=== PATIENT | female | born 1945 | race Caucasian/White ===

== ENCOUNTER 2016-10-17 10:10 | Emergency (ER) | payer MEDICARE ==
[2016-10-17 10:17] VITALS: TEMP 98.5; BMI 24.5
--- NOTE | 2016-10-17 10:19 | PDOC ---
History of Present Illness <Santo Hernandez - Last Filed: 10/17/16 12:55> - General History Source: Patient Exam Limitations: No Limitations - History of Present Illness Initial Comments: 10/17/16 11:48 The patient is a 71 year old female, with a significant past medical history of kidney infection, who presents to the emergency department with left mid back pain for the past 5 days. She reports that she has had a persistent cough since 09/11/16 that is productive of a white phlegm. She notes that recently she has been having fevers of as high as 100.0. She states that she saw her PMD this past week for her flu like symptoms and was prescribed Azithromycin. She states that her pain is intermittent in nature, ranging from mild to moderate, without radiation or modifying factors. The patient denies chest pain, shortness of breath, headache and dizziness. Denies nausea, vomit, diarrhea and constipation. Denies dysuria, frequency, urgency and hematuria. Allergies: None Past surgical history: None reported Social history: No alcohol, tobacco or drug use reported PMD - Dr. Win Vásquez <Blas Rojo - Last Filed: 10/17/16 13:07> - General Chief Complaint: Pain, Acute Stated Complaint: KIDNEY PAIN Time Seen by Provider: 10/17/16 10:19 Past History - Past Medical History Kidney Stones: (kidney infection) - Psycho/Social/Smoking Cessation Hx Suicidal Ideation: No Smoking History: Never smoked Have you smoked in the past 12 months: No Information on smoking cessation initiated: No Hx Alcohol Use: No Drug/Substance Use Hx: No Substance Use Type: None <Santo Hernandez - Last Filed: 10/17/16 12:55> <Blas Rojo - Last Filed: 10/17/16 13:07> - Past Medical History Allergies/Adverse Reactions: Allergies Allergy/AdvReac Type Severity Reaction Status Date / Time No Known Drug Allergies Allergy Verified 10/17/16 10:17 Home Medications: Ambulatory Orders Azithromycin [Zithromax -] 250 mg PO DAILY 10/17/16 Bisacodyl [Correctol] 5 mg PO DAILY PRN 10/17/16 Famotidine [Pepcid -] 40 mg PO DAILY 10/17/16 Review of Systems - Review of Systems Able to Perform ROS?: Yes Comments:: 10/17/16 11:48 CONSTITUTIONAL: +Fever. No chills, no fatigue EYES: No visual changes ENT: No ear pain, no sore throat CARDIOVASCULAR: No chest pain, no palpitations RESPIRATORY: +Cough. No SOB GI: No abdominal pain, no nausea, no vomiting, no constipation, no diarrhea GENITOURINARY: No dysuria, no frequency, no hematuria MUSKULOSKELETAL: +Left mid back pain. No joint pain, no myalgias SKIN: No rash NEURO: No headache <Blas Rojo - Last Filed: 10/17/16 13:07> *Physical Exam - Vital Signs Last Vital Signs Temp Pulse Resp BP Pulse Ox 98.5 F 90 18 112/50 96 10/17/16 10:16 10/17/16 10:16 10/17/16 10:16 10/17/16 10:16 10/17/16 10:16 <Santo Hernandez - Last Filed: 10/17/16 12:55> - Vital Signs Last Vital Signs Temp Pulse Resp BP Pulse Ox 98.5 F 90 18 112/50 96 10/17/16 10:16 10/17/16 10:16 10/17/16 10:16 10/17/16 10:16 10/17/16 10:16 - Physical Exam Comments: 10/17/16 11:48 CONSTITUTIONAL: Well-appearing; well-nourished; in no apparent distress HEAD: Normocephalic; atraumatic EYES: PERRL; EOM intact ENMT: External appears normal; normal oropharynx NECK: Supple; non-tender; no cervical lymphadenopathy CARD: Normal S1, S2; no murmurs, rubs, or gallops RESP: Normal chest excursion with respiration; breath sounds clear and equal bilaterally; no wheezes, rhonchi, or rales ABD: Soft, non-distended; non-tender; no palpable organomegaly, no palpable hernias MUSCULOSKELETAL: +Reproducible left infrascapular tenderness to palpation. EXT: Normal ROM in all four extremities; non-tender to palpation; distal pulses intact SKIN: Warm, dry, no rash NEURO: No focal neurological deficiencies. <Blas Rojo - Last Filed: 10/17/16 13:07> ED Treatment Course - ADDITIONAL ORDERS Additional order review: Laboratory Results 10/17/16 11:03 Urine Color Yellow Urine Appearance Clear Urine pH 5.0 Ur Specific [place] 1.014 Urine Protein Negative Urine Glucose (UA) Negative Urine Ketones Negative Urine Blood 1+ H Urine Nitrite Negative Urine Bilirubin Negative Urine Urobilinogen Negative Ur Leukocyte Esterase Negative Urine RBC 1 Urine WBC 1 Urine Mucus Rare - RADIOLOGY Radiograph Interpretation: 10/17/16 13:06 Chest X-Ray Reviewed by: Dr. Sanjay Islas Impression: No acute pathology. No significant chance since 01/13/2016 <Blas Rojo - Last Filed: 10/17/16 13:07> Medical Decision Making - Medical Decision Making 10/17/16 13:00 Patient is a well-appearing 8-year-old female who presents with atraumatic left infrascapular pain and mild productive cough for the past several days. Patient' s currently on Zithromax prescribed by the PMD. In the ER, patient is afebrile, nontoxic appearing, ambulates without difficulty. Physical exam reveals reproducible left intrascapular musculoskeletal tenderness to palpation. Chest x -ray reveals no evidence of infiltrate or effusion. I do not suspect ACS or PE at this time. Will discharge with NSAIDs with PMD follow-up as needed. <Santo Hernandez - Last Filed: 10/17/16 12:55> *DC/Admit/Observation/Transfer - Attestations Physician Attestion: 10/17/16 12:59 The documentation was prepared by the scribe under my direct supervision. I have reviewed the documentation which correctly represents the findings, medical decision-making and critical action taken by me. <Santo Hernandez - Last Filed: 10/17/16 12:55> - Attestations Scribe Attestion: 10/17/16 11:48 Documentation prepared by Blas Rojo, acting as medical instructor for Santo Hernandez MD. <Blas Rojo - Last Filed: 10/17/16 13:07> Diagnosis at time of Disposition: Upper back pain on left side - Discharge Dispostion Disposition: HOME Condition at time of disposition: Stable - Referrals Referrals: Win Vásquez MD [Staff Physician] - - Patient Instructions Printed Discharge Instructions: DI for Thoracic Back Pain Print Language: ANDORRAN
[2016-10-17 11:20] LABS: URINE APPEARANCE CLEAR; URINE BILIRUBIN NEGATIVE (NEGATIVE); URINE COLOR YELLOW; URINE GLUCOSE (UA) NEGATIVE (NEGATIVE); URINE KETONE NEGATIVE (NEGATIVE); URINE LEUK ESTERASE NEGATIVE (NEGATIVE); URINE NITRITE NEGATIVE (NEGATIVE); URINE PROTEIN NEGATIVE (NEGATIVE); URINE UROBILINOGEN NEGATIVE E.U./dl (0.2-1.0)
[2016-10-17 11:22] LABS: URINE BLOOD 1+ (NEGATIVE)
[2016-10-17 11:24] LABS: URINE MUCUS RARE; URINE RBC 1 /hpf (0-3); URINE WBC 1 /hpf (3-5)
[2016-10-17] MEDS ORDERED: IBUPROFEN 400 MG TABLET (FP) PO ONE ×2 (11:46→12:02)
[2016-10-17 13:21] VITALS: BP 116/66; PULSE 87
== END 2016-10-17 13:20 | disposition home or self-care (01) ==
LOC: JER 10:10
DX: M54.6 Pain in thoracic spine (principal)
CPT/HCPCS: 71020-TC; 81003; 81015; 87086; 99284-25

== ENCOUNTER 2022-11-06 05:57 | Day surgery (SDC) | payer MEDICARE ==
[2022-11-06 06:43] VITALS: BMI 23.0
[2022-11-06] MEDS ORDERED: BUPIVACAINE HCL/PF 0.5% (5 MG/ML) 30 ML VIAL IJ ONE (07:02)
[2022-11-06] MEDS ORDERED: DEXAMETHASONE SOD PHOSPHATE/PF 10 MG/ML SDV ONE (07:02)
[2022-11-06] MEDS ORDERED: MIDAZOLAM HCL 2 MG/2 ML SINGLE DOSE VIAL ONE ×2 (07:06→08:14)
[2022-11-06] MEDS ORDERED: BUPIVACAINE HCL/EPINEPHRINE/PF 30 ML VIAL IJ ONE (07:34)
[2022-11-06] MEDS ORDERED: PROPOFOL 40 ML ONE (07:35)
[2022-11-06] MEDS ORDERED: oxyCODONE HCL 5 MG TABLET PO PRN (09:53)
[2022-11-06] MEDS ORDERED: ONDANSETRON 4 MG/2 ML VIAL IVPUSH PRN (09:53)
[2022-11-06] MEDS ORDERED: KETOROLAC TROMETHAMINE 15 MG/ML VIAL IVPUSH ONE (09:54)
[2022-11-06] MEDS ORDERED: ACETAMINOPHEN 1000 MG/100 ML BAG IVPB ONE (09:54)
[2022-11-06] MEDS ORDERED: ONDANSETRON 4 MG/2 ML VIAL ONE ×2 (10:02→10:51)
[2022-11-06] MEDS ORDERED: KETOROLAC TROMETHAMINE 30 MG/1 ML VIAL ONE (10:02)
[2022-11-06] MEDS ORDERED: FENTANYL CITRATE/PF 50 MCG/ML VIAL ONE (10:02)
[2022-11-06] MEDS ORDERED: ACETAMINOPHEN INJECTION 100 ML IVPB ONE (10:03)
[2022-11-06] MEDS ORDERED: ceFAZolin SODIUM 1 GM VIAL ONE (10:51)
[2022-11-06] MEDS ORDERED: oxyCODONE HCL 5 MG TABLET ONE (10:57)
[2022-11-06 11:21] VITALS: RESP 19
[2022-11-06 11:59] VITALS: BP 125/60; PULSE 62; TEMP 97.7
== END 2022-11-06 11:59 | disposition home or self-care (01) ==
LOC: FASU 05:57
PROVIDERS: ATTEND Orthopaedic Surgery
PROC: 0LS30ZZ Reposition Right Upper Arm Tendon, Open Approach (ICD-10-PCS; 2022-11-06)
PROC: 0RNJ4ZZ Release Right Shoulder Joint, Percutaneous Endoscopic Approach (ICD-10-PCS; principal; 2022-11-06 08:30)
PROC: 0PB94ZZ Excision of Right Clavicle, Percutaneous Endoscopic Approach (ICD-10-PCS; 2022-11-06 08:30)
PROC: 0RQJ4ZZ Repair Right Shoulder Joint, Percutaneous Endoscopic Approach (ICD-10-PCS; 2022-11-06 08:30)
DX: M75.111 Incomplete rotator cuff tear or rupture of right shoulder, not specified as traumatic (principal); M67.813 Other specified disorders of tendon, right shoulder; M94.211 Chondromalacia, right shoulder; M65.811 Other synovitis and tenosynovitis, right shoulder; M75.01 Adhesive capsulitis of right shoulder; M19.011 Primary osteoarthritis, right shoulder; S43.431A Superior glenoid labrum lesion of right shoulder, initial encounter; X58.XXXA Exposure to other specified factors, initial encounter; Y93.9 Activity, unspecified; Y92.9 Unspecified place or not applicable
CPT/HCPCS: 88304-TC; 94760; C1713